=== PATIENT | female | born 1980 ===

== ENCOUNTER 2017-09-09 07:10 | Outpatient (CLI) | payer OTHER | END 2017-09-09 07:30 | disposition home or self-care (01) | LOC: LAB 07:10 | DX: N60.12 Diffuse cystic mastopathy of left breast (principal); N60.11 Diffuse cystic mastopathy of right breast; R97.1 Elevated cancer antigen 125 [CA 125]; N94.6 Dysmenorrhea, unspecified; M94.9 Disorder of cartilage, unspecified; D39.8 Neoplasm of uncertain behavior of other specified female genital organs; N91.2 Amenorrhea, unspecified; N91.1 Secondary amenorrhea; E78.2 Mixed hyperlipidemia; E11.9 Type 2 diabetes mellitus without complications; R50.2 Drug induced fever; B33.8 Other specified viral diseases; B34.8 Other viral infections of unspecified site; I10 Essential (primary) hypertension; E03.8 Other specified hypothyroidism; E55.9 Vitamin D deficiency, unspecified; N30.00 Acute cystitis without hematuria; N92.6 Irregular menstruation, unspecified; N93.9 Abnormal uterine and vaginal bleeding, unspecified; D64.89 Other specified anemias; D50.8 Other iron deficiency anemias; D50.9 Iron deficiency anemia, unspecified; E83.32 Hereditary vitamin D-dependent rickets (type 1) (type 2) ==

== ENCOUNTER 2017-09-09 08:53 | Outpatient (CLI) | payer OTHER | END 2017-09-09 09:04 | disposition home or self-care (01) | LOC: SONOGRAMA 08:53 | DX: N60.12 Diffuse cystic mastopathy of left breast (principal); N60.11 Diffuse cystic mastopathy of right breast; N91.1 Secondary amenorrhea; N83.291 Other ovarian cyst, right side; N83.292 Other ovarian cyst, left side; N83.9 Noninflammatory disorder of ovary, fallopian tube and broad ligament, unspecified ==

== ENCOUNTER 2018-03-06 07:59 | Outpatient (CLI) | payer OTHER | END 2018-03-06 08:00 | disposition home or self-care (01) | LOC: LAB 07:59 | DX: E03.8 Other specified hypothyroidism (principal); D63.8 Anemia in other chronic diseases classified elsewhere; N30.90 Cystitis, unspecified without hematuria; E78.2 Mixed hyperlipidemia; Z34.81 Encounter for supervision of other normal pregnancy, first trimester ==

== ENCOUNTER 2018-08-21 09:43 | Outpatient (CLI) | payer OTHER | END 2018-08-21 10:51 | disposition home or self-care (01) | LOC: NST 09:43 | DX: Z34.83 Encounter for supervision of other normal pregnancy, third trimester (principal) ==

== ENCOUNTER 2018-09-12 15:15 | Inpatient (IN) | payer OTHER ==
[~2018-09-12] VITALS: Ht 165.1 cm; Wt 73.0 kg
[2018-09-16] MEDS ORDERED: PRENATAL FORMU1 EAC1 PO (02:20)
== END 2018-09-18 09:53 | DRG 805 ==
LOC: LDR 09-16 01:37 → OB/GYN 09-16 01:37
PROVIDERS: ADMIT Obstetrics & Gynecology Maternal & Fetal Medicine
PROC: 10E0XZZ Delivery of Products of Conception, External Approach (ICD-10-PCS; principal; 2018-09-16)
PROC: 4A1HXCZ Monitoring of Products of Conception, Cardiac Rate, External Approach (ICD-10-PCS; 2018-09-16)
PROC: 0UQGXZZ Repair Vagina, External Approach (ICD-10-PCS; 2018-09-16)
DX: O71.4 Obstetric high vaginal laceration alone (principal); O60.14X0 Preterm labor third trimester with preterm delivery third trimester, not applicable or unspecified; Z37.0 Single live birth; Z3A.36 36 weeks gestation of pregnancy

== ENCOUNTER 2019-06-09 10:16 | Outpatient (CLI) | payer OTHER ==
[~2019-06-09 10:16] MED LIST: PRENATAL FORMU1 EAC1 PO
== END 2019-06-09 15:00 | disposition home or self-care (01) ==
LOC: LAB 10:16
DX: J20.0 Acute bronchitis due to Mycoplasma pneumoniae (principal); J11.1 Influenza due to unidentified influenza virus with other respiratory manifestations